=== PATIENT | female | born 1995 | race American Indian/Alaskan Native ===

== ENCOUNTER 2017-03-16 10:36 | Outpatient (CLI) | payer MEDICAID ==
[~2017-03-16] VITALS: Ht 162.6 cm; Wt 68.9 kg
[2017-03-16 10:57] VITALS: BP 91/52; PULSE 127; RESP 18; Ht 162.6 cm; Wt 68.9 kg
[2017-03-16 11:18] LABS: ADD UMIC NO; UR ASCORBIC ACID NEGATIVE (NEGATIVE); UR BILIRUBIN (Dip) NEGATIVE (NEGATIVE); UR BLOOD (Dip) NEGATIVE (NEGATIVE); UR CLARITY CLEAR (CLEAR); UR COLOR YELLOW (YELLOW); UR GLUCOSE (Dip) 1+ mg/dL (NEGATIVE); UR KETONES (Dip) NEGATIVE (NEGATIVE); UR LEUKOCYTE ESTERASE (Dip) NEGATIVE Leu/ul (NEGATIVE); UR NITRITE (Dip) NEGATIVE (NEGATIVE); UR SPECIFIC GRAVITY (Dip) 1.019 (1.003-1.030); UR TOTAL PROTEIN (Dip) NEGATIVE (NEGATIVE); UR UROBILINOGEN (Dip) NEGATIVE (NEGATIVE)
[2017-03-16 11:32] LABS: BASOPHILS % 0.3 % (0.0-2.0); EOSINOPHILS % 0.4 % (0.0-7.0); HEMATOCRIT 32.9 % (37.0-47.0); HEMOGLOBIN 11.2 g/dl (12.0-16.0); LYMPHOCYTES # 0.6 10^3/ul (0.8-2.9); LYMPHOCYTES % 5.9 % (15.0-51.0); MEAN CORPUSCULAR HEMOGLOBIN 30.7 pg (29.0-33.0); MEAN CORPUSCULAR VOLUME 90.1 fl (82.0-101.0); MEAN PLATELET VOLUME 8.8 fl (7.4-10.4); MONOCYTE # 1.1 10^3/ul (0.3-0.9); MONOCYTES % 10.2 % (0.0-11.0); NEUTROPHIL # 8.6 10^3/ul (1.6-7.5); NEUTROPHILS % 80.9 % (39.0-77.0); PLATELET COUNT 194 10^3/UL (140-415); RED BLOOD COUNT 3.65 10^6/ul (4.20-5.40); RED CELL DISTRIBUTION WIDTH 12.3 % (11.5-14.5); WHITE BLOOD COUNT 10.7 10^3/ul (4.8-10.8)
--- NOTE | 2017-03-16 11:50 | RADRPT ---
PROCEDURE: Limited obstetric ultrasound CLINICAL INDICATION: Pain TECHNIQUE: Multiple transverse and longitudinal grayscale images of the pelvis were obtained sy sabdominally and transvaginally.. COMPARISON: none FINDINGS: The cervix is closed with a length of 3.9 cm. There is a single viable intrauterine gestation. Cardiac activity is present with 154 beats per min andreafski. There is a vertex presentation. The placenta is anterior. There is no evidence for an abruption or placenta previa. RPTAT: AA IMPRESSION: Cervix length measures 3.9 cm. .Jung Lockwood MD, MD Date Time Electronically viewed and signed by .Jung Lockwood MD, on 03/16/2017 11:50 .S/
[2017-03-16 11:51] LABS: ALBUMIN 3.3 g/dl (3.3-4.9); ALBUMIN/GLOBULIN RATIO 1.06; BILIRUBIN,INDIRECT 0.3 mg/dl (0-1.1); BILIRUBIN,TOTAL 0.3 mg/dl (0.2-1.3); CALCIUM 8.3 mg/dl (8.4-10.2); CREATININE 0.56 mg/dl (0.44-1.00); POTASSIUM 3.6 mmol/L (3.5-5.1); TOTAL PROTEIN 6.4 g/dl (6.1-8.1)
[2017-03-16 12:17] LABS: BARBITURATES Negative (NEGATIVE); BENZODIAZEPINES Negative (NEGATIVE); CANNABINOIDS Negative (NEGATIVE); COCAINE Negative (NEGATIVE); OPIATES Negative (NEGATIVE)
--- NOTE | 2017-03-16 13:18 | CONS ---
Date/Time of Note Date/Time of Note DATE: 03/16/17 TIME: 13:06 Consultation Date/Type/Reason Admit Date/Time March 16, 2017 OB triage consult This patient is a 22 years old 4 para 1 2 which is now 25 weeks and 3 days She came complaining of abdominal pain heat sensation and generalized body ache and pain since last night. In reviewing her medical record her blood type is O+ hepatitis B surface antigen Chlamydia gonorrhea were all negative, rubella she is immune , HIV and RPR nonreactive. On examination her general vital signs appears to be normal except for slight elevation of temperature, her blood pressure is 91/52, pulse rate 127, respiration 18, however her temperature is 101.5. On physical examination she is a well-developed well-nourished lady in mid term,.The skin somewhat warm ; most likely due to flu symptoms , other than that her ear nose throat are normal ,neck is normal no neck vein distention no thyromegaly no lymph node enlargement anywhere . Chest is clear to auscultation percussion no rales. heart normal sinus rhythm no murmur breasts are soft. She has no contractions heart tone is normal Reason for Consultation Laboratory Tests Test 03/16/17 10:40 03/16/17 11:12 Urine Color YELLOW Urine Clarity CLEAR Urine pH 7.0 Urine Specific [place] 1.019 Urine Ketones NEGATIVEmg/dL Urine Nitrite NEGATIVEmg/dL Urine Bilirubin NEGATIVEmg/dL Urine Urobilinogen NEGATIVEmg/dL Urine Leukocyte Esterase NEGATIVELeu/ul Urine Hemoglobin NEGATIVEmg/dL Urine Glucose 1+mg/dL Urine Total Protein NEGATIVEmg/dl Urine Opiates Screen Negative Urine Barbiturates Negative Urine Amphetamines Screen Negative Urine Benzodiazepines Screen Negative Urine Cocaine Screen Negative Urine Cannabinoids Negative White Blood Count 10.710^3/ul Red Blood Count 3.6510^6/ul Hemoglobin 11.2g/dl Hematocrit 32.9% Mean Corpuscular Volume 90.1fl Mean Corpuscular Hemoglobin 30.7pg Mean Corpuscular Hemoglobin Concent 34.0g/dl Red Cell Distribution Width 12.3% Platelet Count 64527^3/UL Mean Platelet Volume 8.8fl Neutrophils % 80.9% Lymphocytes % 5.9% Monocytes % 10.2% Eosinophils % 0.4% Basophils % 0.3% Nucleated Red Blood Cells % 0.0/100WBC Neutrophils # 8.610^3/ul Lymphocytes # 0.610^3/ul Monocytes # 1.110^3/ul Eosinophils # 0.010^3/ul Basophils # 0.010^3/ul Nucleated Red Blood Cells # 0.010^3/ul Sodium Level 137mmol/L Potassium Level 3.6mmol/L Chloride Level 105mmol/L Carbon Dioxide Level 23mmol/L Anion Gap 13 Blood Urea Nitrogen 5mg/dl Creatinine 0.56mg/dl Glucose Level 86mg/dl Calcium Level 8.3mg/dl Total Bilirubin 0.3mg/dl Direct Bilirubin 0.00mg/dl Indirect Bilirubin 0.3mg/dl Aspartate Amino Transf (AST/SGOT) 18IU/L Alanine Aminotransferase (ALT/SGPT) 25IU/L Alkaline Phosphatase 91IU/L Total Protein 6.4g/dl Albumin 3.3g/dl Globulin 3.10g/dl Albumin/Globulin Ratio 1.06 Constitutional: chills, febrile Eyes: No discharge, No no complaints, No other, No pain, No redness, No visual change ENT: other (No sore throat no thyroidomegaly), No bleeding, No congestion, No discharge, No dysphagia, No no complaints, No pain, No sore throat Respiratory: other (Not coughing) Cardiovascular: other (Slight tachycardia of 127 bpm) Gastrointestinal: No blood, No constipation, No decreased appetite, No diarrhea , No flatus, No nausea, No no complaints, No other, No pain, No passing stool, No vomiting Genitourinary: No bleeding, No discharge, No dysuria, No flank pain, No hematuria, No no complaints, No other Musculoskeletal: No back pain, No bone/joint pain, No neck pain, No no complaints, No other, No restricted range of motion, No swelling Skin: other (No petechiae no other option), No bruising, No erythema, No laceration, No no complaints, No pruritis, No rash, No skin lesions Neurologic: No confusion, No dizziness, No focal-weakness, No headache, No no complaints, No other, No seizure, No syncope Endocrine: No dry skin, No no complaints, No other, No polydypsia, No polyuria , No temp intolerance Additional Comments We did some laboratory studies; the result are basically normal Her liver enzymes electrolytes are normal hemoglobin 11.2 WBC 10.7 otherwise CBC is normal. Urinalysis shows 1+ glucose otherwise negative. drug screen was performed the result was negative on ultrasound study the result was a single viable intrauterine gestation with cardiac activity of 154 bpm in vertex presentation placenta was normal anterior and her cervical length was 3.9 cm. With these normal obstetrical finding with the diagnosis of upper respiratory tract infection and flu ,condition was discussed with the patient and she was sent to emergency room for further evaluation and treatment. Social History Smoking Status: Never smoker Exam/Review of Systems Vital Signs Vitals Vital Signs Date Time Temp Pulse Resp B/P Pulse Ox O2 Delivery O2 Flow Rate FiO2 03/16/17 10:57 101.5 127 18 91/52 Room Air Results Result Diagram: 03/16/17 1112 03/16/17 1112 Results 24 hrs Laboratory Tests Test 03/16/17 10:40 03/16/17 11:12 Urine Color YELLOW Urine Clarity CLEAR Urine pH 7.0 Urine Specific [place] 1.019 Urine Ketones NEGATIVE Urine Nitrite NEGATIVE Urine Bilirubin NEGATIVE Urine Urobilinogen NEGATIVE Urine Leukocyte Esterase NEGATIVE Urine Hemoglobin NEGATIVE Urine Glucose 1+ H Urine Total Protein NEGATIVE Urine Opiates Screen Negative Urine Barbiturates Negative Urine Amphetamines Screen Negative Urine Benzodiazepines Screen Negative Urine Cocaine Screen Negative Urine Cannabinoids Negative White Blood Count 10.7 Red Blood Count 3.65 L Hemoglobin 11.2 L Hematocrit 32.9 L Mean Corpuscular Volume 90.1 Mean Corpuscular Hemoglobin 30.7 Mean Corpuscular Hemoglobin Concent 34.0 Red Cell Distribution Width 12.3 Platelet Count 194 Mean Platelet Volume 8.8 Neutrophils % 80.9 H Lymphocytes % 5.9 L Monocytes % 10.2 Eosinophils % 0.4 Basophils % 0.3 Nucleated Red Blood Cells % 0.0 Neutrophils # 8.6 H Lymphocytes # 0.6 L Monocytes # 1.1 H Eosinophils # 0.0 Basophils # 0.0 Nucleated Red Blood Cells # 0.0 Sodium Level 137 Potassium Level 3.6 Chloride Level 105 Carbon Dioxide Level 23 Anion Gap 13 Blood Urea Nitrogen 5 L Creatinine 0.56 Glucose Level 86 Calcium Level 8.3 L Total Bilirubin 0.3 Direct Bilirubin 0.00 Indirect Bilirubin 0.3 Aspartate Amino Transf (AST/SGOT) 18 Alanine Aminotransferase (ALT/SGPT) 25 Alkaline Phosphatase 91 Total Protein 6.4 Albumin 3.3 Globulin 3.10 Albumin/Globulin Ratio 1.06 LIZABETH HOWARD MD Mar 16, 2017 13:18
[2017-03-17] MEDS ORDERED: CEPH500C PO (00:17)
[2017-03-17] MEDS ORDERED: ACET325T33 PO (00:17)
== END 2017-03-16 12:54 | disposition home or self-care (01) ==
LOC: L-D 10:36 → OBT 10:36
PROVIDERS: ATTEND Obstetrics & Gynecology
DX: O26.892 Other specified pregnancy related conditions, second trimester (principal); Z3A.25 25 weeks gestation of pregnancy; R10.9 Unspecified abdominal pain; R20.8 Other disturbances of skin sensation
CPT/HCPCS: 36415; 76817; 80053; 80307; 81003; 85025; Z7500; G0463

== ENCOUNTER 2017-03-16 12:57 | Emergency (ER) | payer SELFPAY ==
[~2017-03-16] VITALS: Ht 162.6 cm; Wt 68.9 kg
[2017-03-16 12:59] VITALS: Ht 162.6 cm; Wt 68.9 kg
[2017-03-17] MEDS ORDERED: CEPH500C PO (00:17)
[2017-03-17] MEDS ORDERED: ACET325T33 PO (00:17)
== END 2017-03-16 16:18 | disposition left against medical advice (07) ==
LOC: FTE 12:57
DX: Z53.21 Procedure and treatment not carried out due to patient leaving prior to being seen by health care provider (principal)

== ENCOUNTER 2017-03-16 21:28 | Emergency (ER) | payer MEDICAID ==
[~2017-03-16] VITALS: Ht 165.1 cm; Wt 69.0 kg
[2017-03-16 21:29] VITALS: Ht 165.1 cm; Wt 69.0 kg
[2017-03-16] MEDS ORDERED: SODIUM CHLORIDE 0.9% 1L BAG IV* STA (21:34)
[2017-03-16] MEDS ORDERED: ACETAMINOPHEN 325 MG TAB PO STA (21:34)
--- NOTE | 2017-03-16 22:05 | RADRPT ---
PROCEDURE: XR Chest. CLINICAL INDICATION: Cough. Possible sepsis. TECHNIQUE: Single frontal view of the chest was obtained COMPARISON: None FINDINGS: The heart and mediastinum are within normal limits. The lungs are clear. There is no pleural effusion or pneumothorax. The osseous structures are unremarkable. IMPRESSION: 1. No acute cardiopulmonary disease. RPTAT:AAJJ Physician Kurtis Date Time Electronically viewed and signed by Martell Catalan Physician on 03/16/2017 22:05 QL/
--- NOTE | 2017-03-16 22:13 | ERD ---
ER Documentation Chief Complaint Chief Complaint 23 wks , cleared from L& D c/o back pain HPI The patient is a 22-year-old female, presenting to the ER because of low back pain for 1 day. She is 23 weeks , was clear from LAD then came to the ER for evaluation. She denies fever, chills, neck pain, chest pain, cough, abdominal pain, vomiting, dysuria, diarrhea. She is 2 para 1, does not smoke nor drink Past medical/surgical history: None ROS All systems reviewed and are negative except as per history of present illness. Medications Home Meds Active Scripts Acetaminophen* (Tylenol*) 325 Mg Tablet, 2 TAB PO Q6 Y for PAIN AND OR ELEVATED TEMP, #20 TAB Prov:GARRETT SHERWOOD MD 03/17/17 Cephalexin* (Cephalexin*) 500 Mg Capsule, 500 MG PO Q6, #40 CAP Prov:GARRETT SHERWOOD MD 03/17/17 Allergies Allergies: Coded Allergies: No Known Allergy (Unverified , 03/16/17) Physical Exam Vitals Vital Signs Date Time Temp Pulse Resp B/P Pulse Ox O2 Delivery O2 Flow Rate FiO2 03/16/17 22:00 110 20 99/71 99 Room Air 03/16/17 21:29 100.4 111 20 108/60 99 Physical Exam Const: No acute distress. Head: Atraumatic. Eyes: Normal Conjunctiva. ENT: Normal External Ears, Nose and Mouth. Neck: Full range of motion. No meningismus. Resp: Clear to auscultation bilaterally. Cardio: Regular Tachycardic Abd: Soft, non distended, normal bowel sounds, non tender.No right lower quadrant, right upper quadrant, epigastric, CVA tenderness Skin: No petechiae or rashes. Back: No midline or flank tenderness. Ext: No cyanosis, or edema. Neur: Awake and alert. No focal deficit Psych: Normal Mood and Affect. Result Diagram: 03/16/17221403/16/172214 Results 24 hrs Laboratory Tests Test 03/16/17 22:15 03/17/17 00:10 White Blood Count 10.210^3/ul Red Blood Count 3.9210^6/ul Hemoglobin 11.9g/dl Hematocrit 34.9% Mean Corpuscular Volume 89.0fl Mean Corpuscular Hemoglobin 30.4pg Mean Corpuscular Hemoglobin Concent 34.1g/dl Red Cell Distribution Width 12.5% Platelet Count 66381^3/UL Mean Platelet Volume 9.1fl Neutrophils % 73.1% Lymphocytes % 9.1% Monocytes % 13.9% Eosinophils % 0.1% Basophils % 0.3% Nucleated Red Blood Cells % 0.0/100WBC Neutrophils # 7.410^3/ul Lymphocytes # 0.910^3/ul Monocytes # 1.410^3/ul Eosinophils # 0.010^3/ul Basophils # 0.010^3/ul Nucleated Red Blood Cells # 0.010^3/ul Prothrombin Time 12.6Sec Prothrombin Time Ratio 1.0 INR International Normalized Ratio 0.94 Activated Partial Thromboplast Time 31.7Sec Sodium Level 136mmol/L Potassium Level 3.5mmol/L Chloride Level 104mmol/L Carbon Dioxide Level 22mmol/L Anion Gap 14 Blood Urea Nitrogen 5mg/dl Creatinine 0.57mg/dl Glucose Level 91mg/dl Lactic Acid Level 1.1mmol/L Calcium Level 8.6mg/dl Total Bilirubin 0.5mg/dl Direct Bilirubin 0.00mg/dl Indirect Bilirubin 0.5mg/dl Aspartate Amino Transf (AST/SGOT) 19IU/L Alanine Aminotransferase (ALT/SGPT) 25IU/L Alkaline Phosphatase 94IU/L Troponin I < 0.012ng/ml Total Protein 6.9g/dl Albumin 3.6g/dl Globulin 3.30g/dl Albumin/Globulin Ratio 1.09 Lipase 62U/L Bedside Urine pH (LAB) 6.0 Bedside Urine Protein (LAB) Negative Bedside Urine Glucose (UA) Negative Bedside Urine Ketones (LAB) Negative Bedside Urine Blood Negative Bedside Urine Nitrite (LAB) Negative Bedside Urine Leukocyte Esterase (L Trace Current Medications Medications (Trade) Dose Ordered Sig/Chantel Route PRN Reason Start Time Stop Time Status Last Admin Dose Admin Sodium Chloride (NS) 2,500 ml BOLUS OVER 2 HOURS STAT IV* 03/16/17 21:34 03/16/17 21:36 DC 03/16/17 22:19 Acetaminophen (Tylenol Tab) 650 mg ONCE STAT PO 03/16/17 21:34 03/16/17 21:36 DC 03/16/17 22:19 [place] [address] [facility] Main Line: [phone] DIAGNOSTIC IMAGING REPORT Patient: KHADRA SANCHEZ : 1995 Age: 22 Sex: F MR #: [id number] DOS: 03/16/17 2134 Ordering MD: TABBY GRANT MD Location: E/R Room/Bed: PROCEDURE: XR Chest. CLINICAL INDICATION: Cough. Possible sepsis. TECHNIQUE: Single frontal view of the chest was obtained COMPARISON: None FINDINGS: The heart and mediastinum are within normal limits. The lungs are clear. There is no pleural effusion or pneumothorax. The osseous structures are unremarkable. IMPRESSION: 1. No acute cardiopulmonary disease. RPTAT:AAJJ Martell Catalan Physician Date Time Electronically viewed and signed by Martell Catalan Physician on 03/16/2017 22:05 QL/ CC: TABBY GRANT MD [place] [address] Radiology Main Line: [phone] DIAGNOSTIC IMAGING REPORT Patient: KHADRA SANCHEZ : 1995 Age: 22 Sex: F MR #: [id number] DOS: 03/16/17 2247 Ordering MD: GARRETT SHERWOOD MD Location: E/R Room/Bed: PROCEDURE: US Abdomen (right upper quadrant). CLINICAL INDICATION: Pain. .. TECHNIQUE: Multiple real-time longitudinal and transverse images of the right upper quadrant of the abdomen were acquired utilizing a curved array transducer. Images were reviewed on a high-resolution PACS workstation. COMPARISON: None FINDINGS: The liver is normal in size and echogencity. There is no focal intrahepatic mass.. The gallbladder is normal. There is no pericholecystic fluid or gallbladder wall thickening or gallstones. No intra or extrahepatic biliary dilatation is seen. The common bile duct measures 3.58 mm in maximal dimension. The pancreas is obscured by bowel gas. No free fluid is identified. Visualized abdominal aorta and IVC are unremarkable. The right kidney measures 11.98 cm in length. There is moderate right hydronephrosis. Kidneys otherwise normal in appearance. IMPRESSION: Moderate right hydronephrosis. Pancreas not visualized due to bowel gas. RPTAT: HMVK .Garrett Henderson MD, MD Date Time Electronically viewed and signed by .Garrett Henderson MD, on 03/16/2017 23:26 .K/ CC: GARRETT SHERWOOD MD EKG: Read by emergency physician Rate/Rhythm: Sinus tachycardia 105 beats/min QRS, ST, T-waves: No ST elevation, no T inversion Impression: Abnormal EKG MEDICAL MAKING DECISION: The patient is a 22-year-old female, presenting with acute febrile illness, unclear etiology, acute right hydronephrosis, suspected acute cystitis. She was treated with Tylenol 650 mg p.o. for fever, normosaline 30 mL/kg IV for acute dehydration with good response. The differential diagnoses considered include but are not limited to viral syndrome, influenza, pneumonia, UTI, pyelonephritis. Departure Diagnosis: Primary Impression: UTI (urinary tract infection) Additional Impressions: Hydronephrosis, right Anemia Condition: Good Comments She was discharged with Keflex, Tylenol I discussed the findings with the patient. I advised the patient to follow-up with the primary physician and the on-call urologist Dr. House in about 1-2 days , sooner if needed and return if any concern. Disclaimer: Inadvertent spelling and grammatical errors are likely due to EHR/ dictation software use and do not reflect on the overall quality of patient care. Also, please note that the electronic time recorded on this note does not necessarily reflect the actual time of the patient encounter. GARRETT SHERWOOD MD Mar 16, 2017 22:13
--- NOTE | 2017-03-16 22:13 | ERD ---
ER Documentation Chief Complaint Chief Complaint 23 wks , cleared from L& D c/o back pain HPI The patient is a 22-year-old female, presenting to the ER because of low back pain for 1 day. She is 23 weeks , was clear from LAD then came to the ER for evaluation. She denies fever, chills, neck pain, chest pain, cough, abdominal pain, vomiting, dysuria, diarrhea. She is 2 para 1, does not smoke nor drink Past medical/surgical history: None ROS All systems reviewed and are negative except as per history of present illness. Medications Home Meds Active Scripts Acetaminophen* (Tylenol*) 325 Mg Tablet, 2 TAB PO Q6 Y for PAIN AND OR ELEVATED TEMP, #20 TAB Prov:GARRETT SHERWOOD MD 03/17/17 Cephalexin* (Cephalexin*) 500 Mg Capsule, 500 MG PO Q6, #40 CAP Prov:GARRETT SHERWOOD MD 03/17/17 Allergies Allergies: Coded Allergies: No Known Allergy (Unverified , 03/16/17) Physical Exam Vitals Vital Signs Date Time Temp Pulse Resp B/P Pulse Ox O2 Delivery O2 Flow Rate FiO2 03/16/17 22:00 110 20 99/71 99 Room Air 03/16/17 21:29 100.4 111 20 108/60 99 Physical Exam Const: No acute distress. Head: Atraumatic. Eyes: Normal Conjunctiva. ENT: Normal External Ears, Nose and Mouth. Neck: Full range of motion. No meningismus. Resp: Clear to auscultation bilaterally. Cardio: Regular Tachycardic Abd: Soft, non distended, normal bowel sounds, non tender.No right lower quadrant, right upper quadrant, epigastric, CVA tenderness Skin: No petechiae or rashes. Back: No midline or flank tenderness. Ext: No cyanosis, or edema. Neur: Awake and alert. No focal deficit Psych: Normal Mood and Affect. Result Diagram: 03/16/17221403/16/172214 Results 24 hrs Laboratory Tests Test 03/16/17 22:15 03/17/17 00:10 White Blood Count 10.210^3/ul Red Blood Count 3.9210^6/ul Hemoglobin 11.9g/dl Hematocrit 34.9% Mean Corpuscular Volume 89.0fl Mean Corpuscular Hemoglobin 30.4pg Mean Corpuscular Hemoglobin Concent 34.1g/dl Red Cell Distribution Width 12.5% Platelet Count 39089^3/UL Mean Platelet Volume 9.1fl Neutrophils % 73.1% Lymphocytes % 9.1% Monocytes % 13.9% Eosinophils % 0.1% Basophils % 0.3% Nucleated Red Blood Cells % 0.0/100WBC Neutrophils # 7.410^3/ul Lymphocytes # 0.910^3/ul Monocytes # 1.410^3/ul Eosinophils # 0.010^3/ul Basophils # 0.010^3/ul Nucleated Red Blood Cells # 0.010^3/ul Prothrombin Time 12.6Sec Prothrombin Time Ratio 1.0 INR International Normalized Ratio 0.94 Activated Partial Thromboplast Time 31.7Sec Sodium Level 136mmol/L Potassium Level 3.5mmol/L Chloride Level 104mmol/L Carbon Dioxide Level 22mmol/L Anion Gap 14 Blood Urea Nitrogen 5mg/dl Creatinine 0.57mg/dl Glucose Level 91mg/dl Lactic Acid Level 1.1mmol/L Calcium Level 8.6mg/dl Total Bilirubin 0.5mg/dl Direct Bilirubin 0.00mg/dl Indirect Bilirubin 0.5mg/dl Aspartate Amino Transf (AST/SGOT) 19IU/L Alanine Aminotransferase (ALT/SGPT) 25IU/L Alkaline Phosphatase 94IU/L Troponin I < 0.012ng/ml Total Protein 6.9g/dl Albumin 3.6g/dl Globulin 3.30g/dl Albumin/Globulin Ratio 1.09 Lipase 62U/L Bedside Urine pH (LAB) 6.0 Bedside Urine Protein (LAB) Negative Bedside Urine Glucose (UA) Negative Bedside Urine Ketones (LAB) Negative Bedside Urine Blood Negative Bedside Urine Nitrite (LAB) Negative Bedside Urine Leukocyte Esterase (L Trace Current Medications Medications (Trade) Dose Ordered Sig/Chantel Route PRN Reason Start Time Stop Time Status Last Admin Dose Admin Sodium Chloride (NS) 2,500 ml BOLUS OVER 2 HOURS STAT IV* 03/16/17 21:34 03/16/17 21:36 DC 03/16/17 22:19 Acetaminophen (Tylenol Tab) 650 mg ONCE STAT PO 03/16/17 21:34 03/16/17 21:36 DC 03/16/17 22:19 Procedures/[place] [address] Radiology Main Line: [phone] DIAGNOSTIC IMAGING REPORT Patient: KHADRA SANCHEZ : 1995 Age: 22 Sex: F MR #: [id number] DOS: 03/16/17 2134 Ordering MD: TABBY GRANT MD Location: E/R Room/Bed: PROCEDURE: XR Chest. CLINICAL INDICATION: Cough. Possible sepsis. TECHNIQUE: Single frontal view of the chest was obtained COMPARISON: None FINDINGS: The heart and mediastinum are within normal limits. The lungs are clear. There is no pleural effusion or pneumothorax. The osseous structures are unremarkable. IMPRESSION: 1. No acute cardiopulmonary disease. RPTAT:AAJJ Martell Catalan Physician Date Time Electronically viewed and signed by Martell Catalan Physician on 03/16/2017 22:05 QL/ CC: TABBY GRANT MD [place] [address] Radiology Main Line: [phone] DIAGNOSTIC IMAGING REPORT Patient: KHADRA SANCHEZ : 1995 Age: 22 Sex: F MR #: [id number] DOS: 03/16/17 2247 Ordering MD: GARRETT SHERWOOD MD Location: E/R Room/Bed: PROCEDURE: US Abdomen (right upper quadrant). CLINICAL INDICATION: Pain. .. TECHNIQUE: Multiple real-time longitudinal and transverse images of the right upper quadrant of the abdomen were acquired utilizing a curved array transducer. Images were reviewed on a high-resolution PACS workstation. COMPARISON: None FINDINGS: The liver is normal in size and echogencity. There is no focal intrahepatic mass.. The gallbladder is normal. There is no pericholecystic fluid or gallbladder wall thickening or gallstones. No intra or extrahepatic biliary dilatation is seen. The common bile duct measures 3.58 mm in maximal dimension. The pancreas is obscured by bowel gas. No free fluid is identified. Visualized abdominal aorta and IVC are unremarkable. The right kidney measures 11.98 cm in length. There is moderate right hydronephrosis. Kidneys otherwise normal in appearance. IMPRESSION: Moderate right hydronephrosis. Pancreas not visualized due to bowel gas. RPTAT: HMVK .Garrett Henderson MD, MD Date Time Electronically viewed and signed by .Garrett Henderson MD, on 03/16/2017 23:26 .K/ CC: GARRETT SHERWOOD MD EKG: Read by emergency physician Rate/Rhythm: Sinus tachycardia 105 beats/min QRS, ST, T-waves: No ST elevation, no T inversion Impression: Abnormal EKG MEDICAL MAKING DECISION: The patient is a 22-year-old female, presenting with acute febrile illness, unclear etiology, acute right hydronephrosis, suspected acute cystitis. She was treated with Tylenol 650 mg p.o. for fever, normosaline 30 mL/kg IV for acute dehydration with good response. The differential diagnoses considered include but are not limited to viral syndrome, influenza, pneumonia, UTI, pyelonephritis. Departure Diagnosis: Primary Impression: UTI (urinary tract infection) Additional Impressions: Hydronephrosis, right Anemia Condition: Good Comments She was discharged with Keflex, Tylenol I discussed the findings with the patient. I advised the patient to follow-up with the primary physician and the on-call urologist Dr. House in about 1-2 days , sooner if needed and return if any concern. Disclaimer: Inadvertent spelling and grammatical errors are likely due to EHR/ dictation software use and do not reflect on the overall quality of patient care. Also, please note that the electronic time recorded on this note does not necessarily reflect the actual time of the patient encounter. GARRETT SHERWOOD MD Mar 16, 2017 22:13
--- NOTE | 2017-03-16 22:13 | ERD ---
ER Documentation Chief Complaint Chief Complaint 23 wks , cleared from L& D c/o back pain HPI The patient is a 22-year-old female, presenting to the ER because of low back pain for 1 day. She is 23 weeks , was clear from LAD then came to the ER for evaluation. She denies fever, chills, neck pain, chest pain, cough, abdominal pain, vomiting, dysuria, diarrhea. She is 2 para 1, does not smoke nor drink Past medical/surgical history: None ROS All systems reviewed and are negative except as per history of present illness. Medications Home Meds Active Scripts Acetaminophen* (Tylenol*) 325 Mg Tablet, 2 TAB PO Q6 Y for PAIN AND OR ELEVATED TEMP, #20 TAB Prov:GARRETT SHERWOOD MD 03/17/17 Cephalexin* (Cephalexin*) 500 Mg Capsule, 500 MG PO Q6, #40 CAP Prov:GARRETT SHERWOOD MD 03/17/17 Allergies Allergies: Coded Allergies: No Known Allergy (Unverified , 03/16/17) Physical Exam Vitals Vital Signs Date Time Temp Pulse Resp B/P Pulse Ox O2 Delivery O2 Flow Rate FiO2 03/16/17 22:00 110 20 99/71 99 Room Air 03/16/17 21:29 100.4 111 20 108/60 99 Physical Exam Const: No acute distress. Head: Atraumatic. Eyes: Normal Conjunctiva. ENT: Normal External Ears, Nose and Mouth. Neck: Full range of motion. No meningismus. Resp: Clear to auscultation bilaterally. Cardio: Regular Tachycardic Abd: Soft, non distended, normal bowel sounds, non tender.No right lower quadrant, right upper quadrant, epigastric, CVA tenderness Skin: No petechiae or rashes. Back: No midline or flank tenderness. Ext: No cyanosis, or edema. Neur: Awake and alert. No focal deficit Psych: Normal Mood and Affect. Result Diagram: 03/16/17221403/16/172214 Results 24 hrs Laboratory Tests Test 03/16/17 22:15 03/17/17 00:10 White Blood Count 10.210^3/ul Red Blood Count 3.9210^6/ul Hemoglobin 11.9g/dl Hematocrit 34.9% Mean Corpuscular Volume 89.0fl Mean Corpuscular Hemoglobin 30.4pg Mean Corpuscular Hemoglobin Concent 34.1g/dl Red Cell Distribution Width 12.5% Platelet Count 73400^3/UL Mean Platelet Volume 9.1fl Neutrophils % 73.1% Lymphocytes % 9.1% Monocytes % 13.9% Eosinophils % 0.1% Basophils % 0.3% Nucleated Red Blood Cells % 0.0/100WBC Neutrophils # 7.410^3/ul Lymphocytes # 0.910^3/ul Monocytes # 1.410^3/ul Eosinophils # 0.010^3/ul Basophils # 0.010^3/ul Nucleated Red Blood Cells # 0.010^3/ul Prothrombin Time 12.6Sec Prothrombin Time Ratio 1.0 INR International Normalized Ratio 0.94 Activated Partial Thromboplast Time 31.7Sec Sodium Level 136mmol/L Potassium Level 3.5mmol/L Chloride Level 104mmol/L Carbon Dioxide Level 22mmol/L Anion Gap 14 Blood Urea Nitrogen 5mg/dl Creatinine 0.57mg/dl Glucose Level 91mg/dl Lactic Acid Level 1.1mmol/L Calcium Level 8.6mg/dl Total Bilirubin 0.5mg/dl Direct Bilirubin 0.00mg/dl Indirect Bilirubin 0.5mg/dl Aspartate Amino Transf (AST/SGOT) 19IU/L Alanine Aminotransferase (ALT/SGPT) 25IU/L Alkaline Phosphatase 94IU/L Troponin I < 0.012ng/ml Total Protein 6.9g/dl Albumin 3.6g/dl Globulin 3.30g/dl Albumin/Globulin Ratio 1.09 Lipase 62U/L Bedside Urine pH (LAB) 6.0 Bedside Urine Protein (LAB) Negative Bedside Urine Glucose (UA) Negative Bedside Urine Ketones (LAB) Negative Bedside Urine Blood Negative Bedside Urine Nitrite (LAB) Negative Bedside Urine Leukocyte Esterase (L Trace Current Medications Medications (Trade) Dose Ordered Sig/Chantel Route PRN Reason Start Time Stop Time Status Last Admin Dose Admin Sodium Chloride (NS) 2,500 ml BOLUS OVER 2 HOURS STAT IV* 03/16/17 21:34 03/16/17 21:36 DC 03/16/17 22:19 Acetaminophen (Tylenol Tab) 650 mg ONCE STAT PO 03/16/17 21:34 03/16/17 21:36 DC 03/16/17 22:19 Procedures/[facility] [place] [address] Radiology Main Line: [phone] DIAGNOSTIC IMAGING REPORT Patient: KHADRA SANCHEZ : 1995 Age: 22 Sex: F MR #: [id number] DOS: 03/16/17 2134 Ordering MD: TABBY GRANT MD Location: E/R Room/Bed: PROCEDURE: XR Chest. CLINICAL INDICATION: Cough. Possible sepsis. TECHNIQUE: Single frontal view of the chest was obtained COMPARISON: None FINDINGS: The heart and mediastinum are within normal limits. The lungs are clear. There is no pleural effusion or pneumothorax. The osseous structures are unremarkable. IMPRESSION: 1. No acute cardiopulmonary disease. RPTAT:AAJJ Martell Catalan Physician Date Time Electronically viewed and signed by Martell Catalan Physician on 03/16/2017 22:05 QL/ CC: TABBY GRANT MD [place] [address] Radiology Main Line: [phone] DIAGNOSTIC IMAGING REPORT Patient: KHADRA SANCHEZ : 1995 Age: 22 Sex: F MR #: [id number] DOS: 03/16/17 2247 Ordering MD: GARRETT SHERWOOD MD Location: E/R Room/Bed: PROCEDURE: US Abdomen (right upper quadrant). CLINICAL INDICATION: Pain. .. TECHNIQUE: Multiple real-time longitudinal and transverse images of the right upper quadrant of the abdomen were acquired utilizing a curved array transducer. Images were reviewed on a high-resolution PACS workstation. COMPARISON: None FINDINGS: The liver is normal in size and echogencity. There is no focal intrahepatic mass.. The gallbladder is normal. There is no pericholecystic fluid or gallbladder wall thickening or gallstones. No intra or extrahepatic biliary dilatation is seen. The common bile duct measures 3.58 mm in maximal dimension. The pancreas is obscured by bowel gas. No free fluid is identified. Visualized abdominal aorta and IVC are unremarkable. The right kidney measures 11.98 cm in length. There is moderate right hydronephrosis. Kidneys otherwise normal in appearance. IMPRESSION: Moderate right hydronephrosis. Pancreas not visualized due to bowel gas. RPTAT: HMVK .Garrett Henderson MD, MD Date Time Electronically viewed and signed by .Garrett Henderson MD, on 03/16/2017 23:26 .K/ CC: GARRETT SHERWOOD MD EKG: Read by emergency physician Rate/Rhythm: Sinus tachycardia 105 beats/min QRS, ST, T-waves: No ST elevation, no T inversion Impression: Abnormal EKG MEDICAL MAKING DECISION: The patient is a 22-year-old female, presenting with acute febrile illness, unclear etiology, acute right hydronephrosis, suspected acute cystitis. She was treated with Tylenol 650 mg p.o. for fever, normosaline 30 mL/kg IV for acute dehydration with good response. The differential diagnoses considered include but are not limited to viral syndrome, influenza, pneumonia, UTI, pyelonephritis. Departure Diagnosis: Primary Impression: UTI (urinary tract infection) Additional Impressions: Hydronephrosis, right Anemia Condition: Good Comments She was discharged with Keflex, Tylenol I discussed the findings with the patient. I advised the patient to follow-up with the primary physician and the on-call urologist Dr. House in about 1-2 days , sooner if needed and return if any concern. Disclaimer: Inadvertent spelling and grammatical errors are likely due to EHR/ dictation software use and do not reflect on the overall quality of patient care. Also, please note that the electronic time recorded on this note does not necessarily reflect the actual time of the patient encounter. GARRETT SHERWOOD MD Mar 16, 2017 22:13
--- NOTE | 2017-03-16 23:26 | RADRPT ---
PROCEDURE: US Abdomen (right upper quadrant). CLINICAL INDICATION: Pain. .. TECHNIQUE: Multiple real-time longitudinal and transverse images of the right upper quadrant of th e abdomen were acquired utilizing a curved array transducer. Images were reviewed on a high-resoluti on PACS workstation. COMPARISON: None FINDINGS: The liver is normal in size and echogencity. There is no focal intrahepatic mass.. The gallbladder is normal. There is no pericholecystic fluid or gallbladder wall thickening or gallstones. No intr a or extrahepatic biliary dilatation is seen. The common bile duct measures 3.58 mm in maximal dime nsion. The pancreas is obscured by bowel gas. No free fluid is identified. Visualized abdominal ao rta and IVC are unremarkable. The right kidney measures 11.98 cm in length. There is moderate right hydronephrosis. Kidneys other dukes normal in appearance. IMPRESSION: Moderate right hydronephrosis. Pancreas not visualized due to bowel gas. RPTAT: HMVK .Garrett Henderson MD, Date Time Electronically viewed and signed by .Garrett Henderson MD, MD on 03/16/2017 23:26 .K/
[2017-03-17] MEDS ORDERED: CEPH500C PO (00:17)
[2017-03-17] MEDS ORDERED: ACET325T33 PO (00:17)
[2017-03-17 01:12] VITALS: BP 99/65; PULSE 70; RESP 18; TEMP 98.4
== END 2017-03-17 01:15 | disposition home or self-care (01) ==
LOC: E/R 21:28
DX: O23.41 Unspecified infection of urinary tract in pregnancy, first trimester (principal); N13.30 Unspecified hydronephrosis; O26.832 Pregnancy related renal disease, second trimester; M54.5 Low back pain; O99.012 Anemia complicating pregnancy, second trimester; D64.9 Anemia, unspecified; R07.9 Chest pain, unspecified; Z3A.23 23 weeks gestation of pregnancy
CPT/HCPCS: 36415; 71010; 76705; 80053; 81001; 81003; 83605; 83690; 84484; 85025; 85610; 85730; 87040; 87086; 93005; J7030; Z7502; Z7610

== ENCOUNTER 2017-09-02 06:15 | Inpatient (IN) | END 2017-09-08 17:35 | disposition home or self-care (01) | DRG 481 ==